=== PATIENT | male | born 1985 | race Caucasian/White ===

== ENCOUNTER 2017-06-19 14:31 | Outpatient (CLI) | payer OTHER ==
--- NOTE | 2017-06-19 16:23 | MRI Report ---
EXAM: MRI LUMBAR SPINE WITHOUT CONTRAST EXAM DATE: 06/19/2017 03:44 PM. CLINICAL HISTORY: CHRONIC DAILY LOWER BACK PAIN WITH RADICULOPATHY. COMPARISON: MR lumbar spine report 06/01/2016 (please note that images are available for comparison). TECHNIQUE: Multiplanar, multisequence T1-weighted and fluid-sensitive sequences of the lumbar spine f rom T12 to S1 without contrast. Other: None. FINDINGS: Spinal Cord: The conus terminates at mid L1. The conus medullaris and cauda equina are unremarkable. Alignment: There is 5 mm of grade 1 retrolisthesis of L5 on S1. There is 1-2 mm of grade 1 retrolisth esis of L4 on L5. Bone Marrow: Five [id number] lumbar vertebral bodies are assumed. There is mild degenerative antonietta nges with mild loss of disk height and disk desiccation seen at L5-S1. No acute fracture. No marrow r eplacing lesion. No definite abnormal marrow edema. Disk Levels/Facets: T12-L1: Unremarkable. L1-L2: Unremarkable. L2-L3: Small posterior disk bulge, ligamenta flava thickening, hepatic facet disease, and prominent d orsal epidural fat. Mild canal stenosis. Minimal bilateral neural foraminal narrowing. L3-L4: Small posterior disk with ligamentum flavum thickening, facet disease, and prominent dorsal ep idural fat. Fluid is seen within the facets bilaterally. Mild spinal canal stenosis. Mild bilateral n eural foraminal narrowing. L4-L5: Small posterior disk bulge with superimposed right paracentral disk protrusion. Ligamenta flav a thickening, hepatic facet disease, and prominent dorsal epidural fat. Fluid is seen within the face ts bilaterally. Mild spinal canal stenosis with effacement of the right lateral recess and contact of the traversing right L5 nerve root. Mild bilateral neuroforaminal narrowing. L5-S1: Small posterior disk bulge with superimposed right paracentral disk protrusion. Bilateral arth ritic facet disease. Mild to moderate spinal canal stenosis with effacement of the lateral recesses w ith contact traversing left S1 and mass effect on the traversing right S1 nerve roots. Mild to modera te right and mild left neural foraminal narrowing. Musculature: Normal. No edema or fatty atrophy. Other: The partially visualized retroperitoneum is unremarkable. IMPRESSION: 1. There is 5 mm of grade 1 retrolisthesis of L5 on S1. 2. There is 1-2 mm of grade 1 retrolisthesis of L4 on L5. 3. Multilevel degenerative changes greatest at L5-S1. L2-L3: Mild canal stenosis. Minimal bilateral neural foraminal narrowing. L3-L4: Mild spinal canal stenosis. Mild bilateral neural foraminal narrowing. L4-L5: Small right paracentral disc protrusion. Mild spinal canal stenosis with effacement of the rig ht lateral recess and contact of the traversing right L5 nerve root. Mild bilateral neuroforaminal na rrowing. L5-S1: Small to moderate right paracentral disk protrusion. Mild to moderate spinal canal stenosis wi th effacement of the lateral recesses with contact traversing left S1 and mass effect on the traversi ng right S1 nerve roots. Mild to moderate right and mild left neural foraminal narrowing. Comment: The following findings are so common in adults without low back pain that while we report th eir presence, they must be interpreted with caution and in the context of the clinical situation. (Re hardy Torres et al, Spine 2001) Prevalence of findings in patients without low back pain: Disk degeneration (any evidence): 92% Disk desiccation/T2 signal loss: 83% Disk height loss: 56% Disk bulge: 64% Disk protrusion: 32% Annular tear/high intensity zone: 38% RADIA Referring Provider Line: [phone] SITE ID: [id number]
== END 2017-06-19 14:32 | disposition home or self-care (01) ==
LOC: DI 14:31
PROVIDERS: ATTEND General Practice
DX: M51.26 Other intervertebral disc displacement, lumbar region (principal); M51.27 Other intervertebral disc displacement, lumbosacral region; M43.16 Spondylolisthesis, lumbar region; M43.17 Spondylolisthesis, lumbosacral region; M47.896 Other spondylosis, lumbar region; M51.36 Other intervertebral disc degeneration, lumbar region
CPT/HCPCS: 72148

== ENCOUNTER 2023-12-13 21:16 | Emergency (ER) | payer OTHER ==
[2023-12-13 21:31] VITALS: O2SAT 94
[2023-12-13 21:46] LABS: BILIRUBIN,URINE NEGATIVE (NEGATIVE); CLARITY,URINE CLEAR (CLEAR); GLUCOSE, URINE (UA) NEGATIVE (NEGATIVE); KETONES,URINE (UA) NEGATIVE (NEGATIVE); LEUKOCYTE ESTERASE, URINE NEGATIVE (NEGATIVE); NITRITE,URINE NEGATIVE (NEGATIVE); OCCULT BLOOD,URINE NEGATIVE (NEGATIVE); PROTEIN,URINE NEGATIVE (NEGATIVE); UROBILINOGEN,URINE 0.2 (NORMAL) E.U./dL (NORMAL)
[2023-12-13 22:23] LABS: BACTERIA,URINE None Seen /HPF (None Seen); RBC,URINE 0-5 /HPF (0-5); SQUAMOUS EPITHELIAL CELL,UR RARE Squamous (<= Few); WBC,URINE 0-3 /HPF (0-3)
--- NOTE | 2023-12-13 23:55 | ED Physician Documentation ---
History of Present Illness - Stated complaint Stated Complaint: ,PX - Chief complaint Chief Complaint: UTI - History obtained from History obtained from: Patient - Additonal information Additional information: 38yM with pmh diverticulitis, gastritis, p/w sharp pelvic pain, and incomplete bladder emptying sensation the past few days with associated dysuria. denies hematuria and increased frequency. denies fever, penile discharge, lesions, masses. +BL testicular pain and occasional rectal pain. similar symptoms a month ago. patient had STI testing last year that was negative. PD PAST MEDICAL HISTORY - Past Medical History Cardiovascular: Arrhythmia GI: Diverticulitis - Past Surgical History General: Cholecystectomy - Present Medications Home Medications: Ambulatory Orders Medication Instructions Recorded Confirmed Pantoprazole Sodium 40 mg PO DAILY 12/13/23 12/13/23 - Allergies Allergies/Adverse Reactions: Allergies Allergy/AdvReac Type Severity Reaction Status Date / Time bee venom protein (honey bee) Allergy Anaphylaxis Verified 12/13/23 21:28 - Social History Does the pt smoke?: No Smoking Status: Never smoker Does the pt drink ETOH?: Yes Does the pt have substance abuse?: No - Immunizations Immunizations are current?: Yes - POLST Patient has POLST: No PD ED PE NORMAL - Vitals Vital signs reviewed: Yes - General General: Alert and oriented X 3, No acute distress, Well developed/nourished - HEENT HEENT: Atraumatic, PERRL, EOMI, Moist mucous membranes, Pharynx benign - Neck Neck: Supple, no meningeal sign - Abdomen Abdomen: Non tender, Non distended - Male Male : Inspector Ball Points present, Other (normal external male genitalia. no inguinal hernias. no testicular masses. testicles nontender on exam. ) - Rectal Rectal: Other (normal KRISTOFER. brown stool on exam. no hemorrhoids.prostate nontender without fluctuance, bogginess or masses) - Back Back: No CVA TTP - Derm Derm: Normal color, Warm and dry Results - Vitals Vitals: Vital Signs - 24 hr 12/13/23 12/14/23 21:24 00:09 Temperature 36.3 C L 36.8 C Heart Rate 102 H 88 Respiratory 19 18 Rate Blood Pressure 153/118 H 140/88 H O2 Saturation 94 94 - Labs Labs: Laboratory Tests 12/13/23 21:00 Urine Color YELLOW Urine Clarity CLEAR Urine pH 6.0 Ur Specific [place] <=1.005 Urine Protein NEGATIVE Urine Glucose (UA) NEGATIVE Urine Ketones NEGATIVE Urine Occult Blood NEGATIVE Urine Nitrite NEGATIVE Urine Bilirubin NEGATIVE Urine Urobilinogen 0.2 (NORMAL) Ur Leukocyte Esterase NEGATIVE Urine RBC 0-5 Urine WBC 0-3 Ur Squamous Epith Cells RARE Squamous Urine Bacteria None Seen Urine Culture Comments NOT INDICATED PD Medical Decision Making - ED course ED course: 38yM p/w pelvic pain X couple days, found to have negative u/a. benign exam. STI testing was sent as well and he will f/u results with pcm. return precautions given. Departure - Departure Disposition: 01 Home, Self Care Clinical Impression: Pelvic pain in male Condition: Stable Follow-Up: Madai Sylvester MD [Physician No Access] - Comments: You were seen in the emergency department for pelvic pain. Your urine test was normal. STI testing was done and you can follow up the results on your patient health portal. Please follow-up with your primary care provider and return to the emergency department if you have any new or worsening symptoms or other concerns. Referral provided to urology in the event your symptoms do not improve. Discharge Date/Time: 12/14/23 00:09
[2023-12-14 00:17] VITALS: BP 140/88
[2023-12-14 14:28] LABS: CHLAMYDIA TRACHOMATIS DNA NEGATIVE (NEGATIVE); NEISSERIA GONORRHOEAE DNA NEGATIVE (NEGATIVE); TRICHOMONAS VAGINALIS DNA NEGATIVE (NEGATIVE)
== END 2023-12-14 00:09 | disposition home or self-care (01) ==
LOC: ED 21:16
DX: R10.2 Pelvic and perineal pain (principal); Z87.19 Personal history of other diseases of the digestive system
CPT/HCPCS: 81001; 87086; 87491; 87591; 87661; 99283

== ENCOUNTER 2024-02-19 10:02 | Outpatient (CLI) | payer OTHER ==
--- NOTE | 2024-02-19 10:49 | Sleep Patient Instructions ---
Sleep Center Visit Summary - Patient Visit Information Reason for Visit: Initial consult for evaluation of sleep disordered breathing and other sleep issues. - Patient Instructions Instructions Attached: Sleep Study Additional Instructions: You will be completing a sleep study, either an in-lab polysomnography (PSG) or home sleep study (HST). You will follow-up in the sleep care office after the sleep study is completed to hear the results and talk about therapy, if needed. You will be called by our office staff to schedule this appointment, but you may contact us with any questions. - Clinic Information Contact: [facility] [address] [place] [address] [email or web address] T: [phone]
--- NOTE | 2024-02-19 10:52 | SLEEP CARE CONSULTATION ---
Information from patient questionnaire entered by Whitney Sullivan. I have reviewed and concur with the information entered by Whitney Sullivan. This document represents the service I personally performed and the decisions made by me, Rut Fry ARNP. History of Present Illness Service Date and Time: 02/19/2024 1002 Reason for Visit: New patient Chief Complaint: reports: Unrefreshed sleep, Snoring, Excessive daytime sleepiness, Observed pauses in breathing, Fatigue, Frequent awakenings at night Date of Onset: 6-8YRS Usual bedtime: [id number] Time it takes to fall asleep: 1-4HRS Snores at night: Yes Observed to quit breathing while asleep: Yes Sleeps alone due to snoring: Yes Number of times waking at night: 10-20 Reasons for waking at night: reports: Choking, Snoring, Gasping for air, Pain, Other (NOISE, UNKNOWN REASONS) Toss, Turn, or Twitch while sleeping: Yes Recalls having dreams: Yes Usually gets out of bed at: 0540 Feels refreshed in the morning: No Morning headache: Yes Sleepy or fatigued during the day: Yes Ever fallen asleep while driving: Yes Takes day naps: Yes Dreams during day naps: No Prior sleep studies: No Additional HPI information: I had the pleasure of seeing MANJIT CARRILLO today regarding the possibility of him having a sleep disorder. His current complaints are unrefreshed sleep, snoring, excessive daytime sleepiness, observed pauses in breathing, fatigue and frequent night awakenings. He is here because he was at a doctor's appointment and they found tachycardia and high blood pressure. He is currently on a heart monitor. He says he does sometimes wake up feeling like his heart is racing and he is short of breath. His tells him that he snores loudly and she has seen pauses in his sleep. He has always been a restless sleeper. She has also told him that he can wake up gasping and go back to sleep without him remembering the incident. The patient tells me that he normally goes to bed around 9-10 pm, and it takes him approximately 1-4 hours to fall asleep. He has been told that he snores loudly and irregularly at night. He has been observed to stop breathing in his sleep. His bed partner can still sleep in the same bed. He says sometimes he will go to the couch to let his sleep better. He can recall waking up on the average of 8-10 times during the night. Most of the time he wakes up because of noise, pain and unknown reasons. He has occasionally awakened for his own snoring, choking, and having to gasp for air. There is a lot of tossing and turning in his sleep. Generally he can recall having dreams. He usually wakes up at 0540 on weekdays and on weekends could be another hour or so and does not feel refreshed. He usually does have a morning headache about 4-5 days a week that lasts all day. He will take Tylenol Extra Strength that helps sometimes. During the day he complains of feeling sleepy and fatigued. He has never fallen asleep while driving nor has any accident due to sleepiness. He usually naps for about 1-2 hours during the day if able to get one. If he naps, upon falling asleep during the day he denies having vivid dreams. There is somniloquy (sleep talking) but no somnambulism (sleep walking). He reports having impaired concentration during the day. - Parasomnia Symptoms Ever been unable to move upon waking from sleep: No Walks in sleep: No Talks in sleep: Yes Ever acted out dreams in sleep: Yes Ever felt weak in the knees when startled or emotional: Yes Bothered by creepy, crawly, restless sensations in legs: Yes Problems with memory or concentration: Yes (both, like brain fog) Subjective Initial [place] Sleepiness Scale score: 17 (02/19/24) Past Medical History Past Medical History: reports: GERD, Other (30 days blood pressure meds, heart monitor---not yet followed up) Social History The patient's occupation is a AM. Patient is and lives in . Have you smoked in the past 12 months: No Alcohol use: Yes Alcohol amount and frequency: 1-2 ONCE A WEEK REALLY VARIES Caffeine use: Yes Caffeine amount and frequency: 1 EVERY MORNING Family History Family history of sleep disordered breathing: No (NOT SURE) Allergies and Home Medications Known drug allergies: Yes ( LISTED ) Drug allergies reviewed: Yes Home medication list reviewed: Yes (as listed) Allergy and home medication list: Allergies bee venom protein (honey bee) Allergy (Verified 02/19/24 10:15) Anaphylaxis Home Medications Medication Instructions Recorded Confirmed Last Taken Type Pantoprazole Sodium 40 mg PO DAILY 12/13/23 02/19/24 12/13/23 History Ferrous Sulfate [Slow Fe] See Rx Instructions .ROUTE .COMPLEX 02/19/24 02/19/24 Unknown History Multivitamin See Rx Instructions .ROUTE .COMPLEX 02/19/24 02/19/24 Unknown History Review of Systems Weight gain over past 5 years: 60 in last year Cardiovascular: reports: high blood pressure, palpitations, chest pain, irregular heart rate or pulse Respiratory: reports: shortness of breath, wheeze Urinary: reports: incontinence Neurological: reports: headaches Psychiatric: reports: anxiety, depression Ear/Nose/Throat: reports: nasal congestion, sinus problems, nose bleeds, dry mouth/throat. denies: tonsillectomy Endocrine: reports: sluggishness, excessive thirst, increased appetite, unexplained weakness Musculoskeletal: reports: joint pain, neck pain, back pain, joint swelling, muscle pain or cramping, mobility problems Physical Exam Vital signs obtained and entered by: WHITNEY Carney MA Blood Pressure: 145/89 (LEFT ARM) Cuff size: long Heart Rate: 62 O2 Saturation: 96 Height: 6 ft 2 in (PER PT) Weight: 287 lb (PER PT) Body Mass Index: 36.8 BMI Classification: Obese Neck circumference: 17 Nostrils: patent to airflow Mouth and throat: narrow oropharynx Soft palate: long Hard palate: normal Uvula: normal Uvula visualization: 25% Mallampati Class III Tongue: enlarged in size with teeth naidu on lateral edges Tonsils: 2+ Neck: normal w/o lymphadenopathy or thyromegaly Heart: regular rate and rhythm Lungs: clear bilaterally Impression and Plan 1. Suspected Obstructive Sleep Apnea-Hypopnea Syndrome, as suggested by a history of loud and irregular snoring, observed cessation of breath while asleep, gasping or choking in sleep, morning headache, frequent awakening during the night, unrefreshed sleep, cognitive impairment, and excessive daytime sleepiness. Narrow oropharynx and obesity are common predisposing factors for obstructive sleep apnea-hypopnea syndrome. I recommend proceeding to polysomnography to confirm the diagnosis and to assess severity. If the patient has significant sleep disordered breathing, a manual CPAP titration study will also be performed to find the optimal treatment pressure. I informed the patient of what the sleep studies involve and after some discussion, obtained agreement to proceed. The pathophysiology of obstructive sleep apnea-hypopnea syndrome was discussed with the patient and health risks of cardiovascular and cerebrovascular disease if not treated. Risks of drowsy driving discussed in detail and patient advised to avoid long distance driving and to ear pull machine operator at the first sign of drowsiness. Patient agreed to plan. * Schedule polysomnography * Avoid long distance driving or driving when feeling sleepy. * Avoid alcohol, sedative and muscle relaxant around bedtime. * Attempt to lose weight. * Review instructions provided by trained office staff on how to prepare for the sleep study. * Return for follow-up after sleep study completed. Counseling Topics: Weight loss health impact Plan: PSG/HST and followup Visit Type: In Office Time Spent with Patient (minutes): 32 Provider Statement: I spent 100% of the Face to Face Visit with the patient with greater than 50% spent counseling the patient and coordination of care.
[2024-02-19 10:59] VITALS: BP 145/89; O2SAT 96
== END 2024-02-19 10:03 | disposition home or self-care (01) ==
LOC: SC 10:02
PROVIDERS: ATTEND Nurse Practitioner Family
DX: G47.8 Other sleep disorders (principal); G47.10 Hypersomnia, unspecified; R06.81 Apnea, not elsewhere classified; R53.83 Other fatigue; R00.0 Tachycardia, unspecified; I10 Essential (primary) hypertension; E66.9 Obesity, unspecified; Z68.36 Body mass index [BMI] 36.0-36.9, adult; R41.89 Other symptoms and signs involving cognitive functions and awareness
CPT/HCPCS: 99203; 99212

== ENCOUNTER 2024-03-24 19:07 | Outpatient (CLI) | payer OTHER | END 2024-03-24 19:08 | disposition home or self-care (01) | LOC: SC 19:07 | PROVIDERS: ATTEND Nurse Practitioner Family | DX: G47.33 Obstructive sleep apnea (adult) (pediatric) (principal); G47.61 Periodic limb movement disorder; E66.9 Obesity, unspecified; Z68.36 Body mass index [BMI] 36.0-36.9, adult | CPT/HCPCS: 95810 ==

== ENCOUNTER 2024-04-06 14:20 | Outpatient (CLI) | payer OTHER ==
--- NOTE | 2024-04-06 15:08 | Sleep Patient Instructions ---
Sleep Center Visit Summary - Patient Visit Information Reason for Visit: Sleep study follow-up - Patient Instructions Instructions Attached: CPAP Additional Instructions: You are being started on CPAP therapy with pressure setting at 4-15 cmH2O. You w ill need to call the sleep care office to set up your follow up once you have your CPAP machine to check compliance and response to therapy at that time. You may call the office with any concerns about pressure feeling too low or too much for adjustment, if needed. You should contact DME supplier for any questions or concerns about mask or equipment. Please call office to schedule a follow up appointment in the sleep care office one month after obtaining new device. - Clinic Information Contact: [facility] [address] [place] [address] [email or web address] T: [phone]
[2024-04-06 15:11] VITALS: BP 143/92; O2SAT 95
--- NOTE | 2024-04-06 15:11 | SLEEP CARE CONSULTATION ---
Information from patient questionnaire entered by Kathryn Smith. I have reviewed and concur with the information entered by Kathryn Smith. This document represents the service I personally performed and the decisions made by , Rut Fry ARNP. History of Present Illness Service Date and Time: 04/06/2024 1420 Initial [place] Sleepiness Scale score: 17 (02/19/24) Current [place] Sleepiness Scale score: 9 (04/06/24) Additional HPI information: MANJIT CARRILLO returns for follow up and results of the recently performed polysomnography. The sleep study done on 03/24/24 showed mild obstructive sleep apnea with an average AHI of 10.1 and boo oxygen saturation of 83%. He had mild PLMs contributing to sleep fragmentation. I explained the pathophysiology behind obstructive sleep apnea. We then spent quite a bit of time discussing different treatment options. For mild obstructive sleep apnea, surgery and oral appliance are alternatives to nasal CPAP therapy but in moderate or severe cases, nasal CPAP is the most effective and reliable treatment. I reviewed the impact of weight changes on sleep apnea and strongly recommended losing weight. After some discussion, the patient opted to go with the nasal CPAP therapy. Nasal autoCPAP set at 4-15 cmH20 will be ordered with rationale explained. A manual titration study will be ordered if unable to find optimal pressure with office adjustments. I explained how CPAP machine works and what to expect when using the machine. Using CPAP every night in order to get used to it was emphasized. Patient advised to put CPAP mask on before getting into bed so as not to fall asleep without CPAP. To assist acclimation to CPAP use, it could also be used for a short time during day while reading or watching TV. The patient was instructed to call the CPAP supplier to discuss any mechanical problem that may occur. If the mask given is uncomfortable or is difficult to keep on through the night even with adjustment, contact the CPAP supplier as many will replace with another mask style if notified before 30 days. If snoring or perceives is not getting enough air or too much air from the machine, notify this office. Patient counseled not drink alcohol less than 4 hours before bedtime as it can increase snoring and apnea. Patient was cautioned about risks of drowsy driving until sleepiness symptoms resolve. Patient denies drowsy driving. Sleep Study - Results Prior sleep studies: No Polysomnography/Home Sleep Study results: IMPRESSION: The quality of the study is good. The patient had normal sleep efficiency. The sleep architecture was relatively normal as well considering the first night effect. Respiratory monitoring showed mild obstructive sleep apnea-hypopnea (AHI = 10.1) associated with oxyhemoglobin desaturation and mild hypoxia (boo oxygen saturation of 83%). The respiratory events occurred mainly during REM sleep (supine AHI = 15.3; non-supine = 9.14). Snore was light to loud in intensity. There was mild periodic leg movement of sleep, not associated with sleep fragmentation. Cardiac rhythm was normal sinus rhythm without significant arrhythmia. No abnormal behavior (parasomnia) observed during the night. Allergies and Home Medications Known drug allergies: No (as listed) Drug allergies reviewed: Yes Home medication list reviewed: Yes (no changes) Allergy and home medication list: Allergies bee venom protein (honey bee) Allergy (Verified 02/19/24 10:15) Anaphylaxis Review of Systems Review of systems same as previous: Yes (no changes) Physical Exam Vital signs obtained and entered by: Rut Self NP Blood Pressure: 143/92 Cuff size: long (left arm) Heart Rate: 68 O2 Saturation: 95 Height: 6 ft 2 in (PER PT) Weight: 295 lb Body Mass Index: 37.8 BMI Classification: Obese Impression and Plan 1. Obstructive Sleep Apnea-Hypopnea Syndrome, mild, with lowest oxygen saturation of 83%. Obviously this is the cause of the patients symptoms of unrefreshed sleep, and excessive daytime sleepiness. Positive pressure therapy could benefit gastric reflux. As mentioned above, the patient will be started on nasal autoCPAP therapy with pressure set at 4-15 cmH2O. A manual titration study will be completed if unable to find optimal treatment pressure with office adjustments. Compliance guidelines also reviewed. A copy of compliance guidelines will be given for reference at check out. Because the apnea is more severe supine, I instructed to avoid sleeping supine using pillow positioning until able to start CPAP use. 2. Periodic limb movement, mild, that did not fragment patients sleep. Periodic limb movement of sleep (PLMS) is characterized by episodes of repetitive limb movements that occur during sleep and usually involve the lower limbs. The etiology is unknown. Caffeine can also aggravate PLMS and should be avoided. Sleep hygiene methods can also improve sleep as well as lifestyle changes such as regular exercise. Patient was advised that no treatment is needed at this time. If symptoms increase, then further evaluation is indicated. 3. Obesity, unspecified. Currently patients BMI is 37.8. Obesity increases the risk of apnea, CPAP pressure requirements and overall health risks especially cardiovascular and diabetes. Thus patient is advised to lose weight. * Nasal auto CPAP therapy, pressure at 4-15 cmH2O. * Attempt to lose weight. * Avoid alcohol consumption near bedtime. * Avoid supine sleep until using CPAP. * The patient is again cautioned about driving until sleepiness completely resolves. * Return one month after CPAP obtained. I will assess response to therapy and compliance at that time. Counseling Topics: Weight loss health impact Prescriptions: Auto CPAP Follow up with Sleep Care in: other (compliance followup) Visit Type: In Office Time Spent with Patient (minutes): 20 Provider Statement: I spent 100% of the Face to Face Visit with the patient with greater than 50% spent counseling the patient and coordination of care.
== END 2024-04-06 14:21 | disposition home or self-care (01) ==
LOC: SC 14:20
PROVIDERS: ATTEND Nurse Practitioner Family
DX: G47.33 Obstructive sleep apnea (adult) (pediatric) (principal); G47.61 Periodic limb movement disorder; E66.9 Obesity, unspecified; Z68.37 Body mass index [BMI] 37.0-37.9, adult
CPT/HCPCS: 99212; 99213